=== PATIENT | female | born 1970 | race Caucasian/White ===

== ENCOUNTER 2023-03-21 16:53 | Emergency (ER) | payer MEDICAID ==
[~2023-03-21] VITALS: Ht 165.1 cm; Wt 99.8 kg
[2023-03-21 17:00] VITALS: BP_SYST 137; PULSE 85; RESP 20; TEMP 98.3; O2SAT 98
[2023-03-21] MEDS ORDERED: KETOROLAC TROMETHAMINE 30 MG VIAL IM ONE (17:30)
[2023-03-21] MEDS ORDERED: LIDOCAINE PATCH 5% 1 EA TP ONE (17:30)
[2023-03-21 18:27] LABS: ALBUMIN 3.3 g/dL (3.4-4.8); ANION GAP 8 (5-15); ASPARTATE AMINOTRANSFERASE 29 U/L (10-37); CALCIUM 8.3 mg/dL (8.4-11.0); CARBON DIOXIDE 25 mmol/L (23-29); CHLORIDE 105 mmol/L (98-107); CREATININE 0.85 mg/dL (0.55-1.30); GFR AFRICAN AMERICAN 91 mL/min (>90); GLUCOSE 94 mg/dL (74-106); POTASSIUM 3.8 mmol/L (3.5-5.1); SODIUM SERUM 138 mmol/L (136-145); TOTAL BILIRUBIN 0.8 mg/dL (0.0-1.0); TOTAL PROTEIN, SERUM 6.6 g/dL (6.4-8.3); UREA NITROGEN, BLOOD 12 mg/dL (8-21)
[2023-03-21 18:28] LABS: BASOPHILS % (AUTO) 0.7 % (0.0-2.0); EOSINOPHILS # (AUTO) 0.1 K/uL (0.0-0.4); EOSINOPHILS % (AUTO) 1.5 % (0.0-4.0); HEMATOCRIT 45.9 % (36-48); HEMOGLOBIN 14.8 g/dL (12.0-16.0); LYMPHOCYTES # (AUTO) 1.4 K/uL (1.0-5.5); LYMPHOCYTES % (AUTO) 30.2 % (20.5-51.5); MEAN CORPUSCULAR HEMOGLOBIN 31 pg (27-31); MEAN CORPUSCULAR HGB CONC 32 % (32-36); MEAN CORPUSCULAR VOLUME 96 fL (79.0-98.0); MONOCYTES # (AUTO) 0.4 K/uL (0.0-1.0); MONOCYTES % (AUTO) 8.6 % (1.7-9.3); NEUTROPHILS # (AUTO) 2.7 K/uL (1.8-7.7); PLATELET COUNT (AUTO) 269 K/uL (130-430); RED CELL DISTRIBUTION WIDTH 13.6 % (9.0-15.0); WHITE BLOOD COUNT (AUTO) 4.6 K/uL (4.8-10.8)
[2023-03-21 18:37] LABS: GFR NON AFRICAN-AMERICAN 75 mL/min (>90)
[2023-03-21] MEDS ORDERED: CYCL10TA24 PO (18:45)
[2023-03-21] MEDS ORDERED: ACETAMINOPHEN 500 MG TABLET PO ONE (18:45)
[2023-03-21 18:46] LABS: ALANINE AMINOTRANSFERASE 43 U/L (12-78)
[2023-03-21 18:56] VITALS: BP_SYST 137; PULSE 85; RESP 20; TEMP 98.3; O2SAT 98
== END 2023-03-21 18:56 | disposition home or self-care (01) ==
LOC: SED 16:53
DX: S23.3XXA Sprain of ligaments of thoracic spine, initial encounter (principal); R25.2 Cramp and spasm; Z79.899 Other long term (current) drug therapy; X58.XXXA Exposure to other specified factors, initial encounter; Y93.89 Activity, other specified; Y92.89 Other specified places as the place of occurrence of the external cause; Y99.8 Other external cause status
CPT/HCPCS: 99285; 71045; 80053; 85025; 84484; 36415; 93005; 72040; 96372; J1885

== ENCOUNTER 2024-02-19 18:09 | Emergency (ER) | payer MEDICAID ==
[~2024-02-19] VITALS: Ht 170.2 cm; Wt 104.8 kg
[~2024-02-19 18:09] MED LIST: CYCL10TA24 PO
[2024-02-19 18:23] VITALS: BP_SYST 143; PULSE 78; RESP 16; TEMP 97.4; O2SAT 97
[2024-02-19 19:50] LABS: INFLUENZA TYPE A Negative (NEGATIVE); INFLUENZA TYPE B NEGATIVE (NEGATIVE)
[2024-02-19 20:05] LABS: COVID19 ANTIGEN SOFIA FIA NEGATIVE (NEGATIVE)
[2024-02-19] MEDS: HYDROcodone/ACETAMIN 5-325 MG TAB (NORCO/ VICODIN) PO ONE ×3 (20:06→20:10)
[2024-02-19 20:19] LABS: STREPTOCOCCUS A SCREEN (RAPID) NEGATIVE (NEGATIVE)
[2024-02-19] MEDS ORDERED: HYDR-3921 PO (20:47)
[2024-02-19] MEDS ORDERED: SULF3.5O14 OP (20:47)
[2024-02-19 20:55] VITALS: BP_SYST 127; PULSE 72; RESP 15; TEMP 98.4; O2SAT 97
== END 2024-02-19 20:55 | disposition home or self-care (01) ==
LOC: SED 18:09
DX: H10.9 Unspecified conjunctivitis (principal); J06.9 Acute upper respiratory infection, unspecified; Z20.822 Contact with and (suspected) exposure to COVID-19; Z79.899 Other long term (current) drug therapy
CPT/HCPCS: 36415; 86403; 87081; 99283